=== PATIENT | female | born 1965 | race Caucasian/White ===

== ENCOUNTER 2016-12-11 22:00 | Emergency (ER) | payer MEDICAID ==
[~2016-12-11] VITALS: Ht 154.9 cm; Wt 63.5 kg
[~2016-12-11 22:00] MED LIST: NO MEDS
[2016-12-11 22:17] VITALS: BP 137/90
== END 2016-12-12 01:00 | disposition home or self-care (01) ==
LOC: ER 22:01
DX: S29.012A Strain of muscle and tendon of back wall of thorax, initial encounter (principal); Z86.711 Personal history of pulmonary embolism; Z88.2 Allergy status to sulfonamides; V43.52XA Car driver injured in collision with other type car in traffic accident, initial encounter; Y93.89 Activity, other specified; Y92.89 Other specified places as the place of occurrence of the external cause; Y99.9 Unspecified external cause status
CPT/HCPCS: 99283; A4606; Z7610

== ENCOUNTER 2018-07-02 06:11 | Inpatient (IN) | payer MEDICAID, OTHER ==
[~2018-07-02] VITALS: Ht 152.4 cm; Wt 68.0 kg
--- NOTE | 2018-07-02 06:20 | NUR ---
TO BED 4 AMBULATORY C/O RLQ ABDOMINAL PAIN WITH N/V SINCE 0230. PT AAOX4 NO ACUTE DISTRESS NOTED, RESP EVEN AND UNLABORED. ER MD AT BEDSIDE TO EVAL PT WITH ORDERS RECEIVED. WILL CARRY OUT ORDERS.
[2018-07-02] MEDS ORDERED: HYDROMORPHONE INJ 2 MG/ML DISP.SYRIN IV ONE (06:30)
[2018-07-02] MEDS ORDERED: ONDANSETRON HCL/PF 4 MG/2 ML VIAL IVP ONE (06:30)
[2018-07-02] MEDS ORDERED: IV NS 0.9% 1,000 ML BAG IV ONE (06:30)
[2018-07-02] MEDS ORDERED: ONDANSETRON HCL/PF 4 MG/2 ML VIAL ONE (06:33)
[2018-07-02] MEDS ORDERED: HYDROMORPHONE 1 MG/1 ML DISP.SYRIN ONE (06:34)
--- NOTE | 2018-07-02 06:35 | NUR ---
PT UNABLE TO PROVIDE URINE SAMPLE AT THIS TIME. GIANLUCA GERARDO MADE AWARE.
--- NOTE | 2018-07-02 06:36 | NUR ---
RN AT BEDSIDE TO MEDICATE PT.
[2018-07-02 06:54] LABS: BASOPHILS # (AUTO) 0.1 /CMM (0.0-0.2); BASOPHILS % (AUTO) 0.4 % (0.0-2.0); EOSINOPHILS % (AUTO) 0.1 % (0.0-6.0); HEMATOCRIT 45 % (33-45); HEMOGLOBIN 14.6 g/dL (11.5-14.8); LYMPHOCYTES % (AUTO) 6.1 % (20.0-44.0); MEAN CORPUSCULAR HEMOGLOBIN 30 PG (26.0-33.0); MEAN CORPUSCULAR HGB CONC 32 g/dl (31.0-36.0); MEAN CORPUSCULAR VOLUME 93 fL (82-100); MONOCYTES # (AUTO) 0.9 /CMM (0.1-1.30); MONOCYTES % (AUTO) 5.6 % (2.0-12.0); NEUTROPHILS # (AUTO) 14.4 /CMM (1.8-8.9); NEUTROPHILS % (AUTO) 87.8 % (43.0-81.0); PLATELET COUNT (AUTO) 203 /CMM (150-450); RED BLOOD CELL COUNT(AUTO) 4.86 MIL/uL (4.0-5.2); WHITE BLOOD COUNT (AUTO) 16.4 K/uL (4.3-11.0)
[2018-07-02 06:56] LABS: CALCIUM, SERUM 8.6 mg/dL (8.5-10.1); CREATININE 0.8 mg/dL (0.6-1.3); POTASSIUM 3.7 mmol/L (3.5-5.1)
[2018-07-02 07:02] LABS: ALBUMIN 4.3 g/dL (3.4-5.0); BILIRUBIN,DIRECT 0.1 mg/dL (0.0-0.2); BILIRUBIN,TOTAL 0.8 mg/dL (0.2-1.0); TOTAL PROTEIN, SERUM 7.8 g/dL (6.4-8.2)
--- NOTE | 2018-07-02 07:27 | NUR ---
PT TO CT.
--- NOTE | 2018-07-02 07:37 | NUR ---
PT IS BACK FROM CT
[2018-07-02 07:58] LABS: APPEARANCE,URINE SL CLOUDY (CLEAR); BILIRUBIN,URINE 1+ (NEGATIVE); BLOOD, URINE NEGATIVE Ery/uL (NEGATIVE); COLOR,URINE YELLOW (YELLOW); KETONES,URINE 3+ (NEGATIVE); LEUKOCYTE ESTERASE ,URINE NEGATIVE (NEGATIVE); NITRITE, URINE NEGATIVE (NEGATIVE); PH,URINE 5.5 (5.0-8.0); PROTEIN,URINE NEGATIVE (NEGATIVE); UGLUCOSE NEGATIVE (NEGATIVE); UROBILINOGEN,URINE 0.2 EU/dL (0.2)
[2018-07-02 08:04] LABS: RBC,URINE NONE SEEN /HPF (0-2); WBC,URINE 0-2 /HPF (0-3)
--- NOTE | 2018-07-02 08:04 | NUR ---
CALLED FOR TELE BED
[2018-07-02 08:05] LABS: BACTERIA,URINE Few /HPF (None Seen); SQUAMOUS EPITHELIAL CELL,UR Few /HPF (None Seen)
[2018-07-02] MEDS ORDERED: RANI150C4 PO (08:14)
[2018-07-02] MEDS ORDERED: PIPERACILLIN /TAZOBACTAM 3.375 G in IV D5W 50 ML IV ONE (08:30)
[2018-07-02] MEDS ORDERED: IV NS 0.9% 1,000 ML IV PRN (08:40)
[2018-07-02] MEDS ORDERED: MORPHINE SULFATE INJ 4 MG/ML DISP.SYRIN IV PRN (09:00)
[2018-07-02] MEDS ORDERED: Z GUARD REMEDY 2 OZ OINT TP PRN (09:00)
[2018-07-02] MEDS ORDERED: ZOLPIDEM TARTRATE 5 MG TABLET PO PRN (09:00)
--- NOTE | 2018-07-02 09:02 | NUR ---
REPORT GIVEN TO ELISABETH MCKEON FOR BUSHRA
--- NOTE | 2018-07-02 09:10 | NUR ---
RN NOTES RECEIVED REPORT FROM GIANLUCA DE LEÓN RN
[2018-07-02 09:25] VITALS: BP 112/65
--- NOTE | 2018-07-02 09:30 | NUR ---
MS/RN ADMITTING NOTES RECEIVED PT FROM ER VIA GURNEY, PT IS AMBULATORY WITH STANDBY ASSIST. A/OX4. TOLERATING ROOM AIR WELL, NO SOB NOTED. WITH C/O ABDOMINAL RLQ PAIN, WITH PAIN SCALE OF 8/10. WITH INTACT AND PATENT RAC G18 SL. VS AND INITIAL PHYSICAL ASSESSMENT DONE. ORIENTE TO ROOM AND CALL LIGHT, HOB ELEVATE. BED IN LOW AND LOCKED POSITION. SAFETY MEASURES IN PLACED. CALL LIGHT WITHIN REACH. DR STREETER, ADMITTING MD ON FLOOR. WILL CONT TO MONITOR
--- NOTE | 2018-07-02 09:50 | NUR ---
RN NOTES SEEN AND EXAMINED BY DR STREETER, ALL CONCERNS WERE ANSWERED BY MD. ADMISSION ORDER DONE BY MD. PER MD, POSSIBLE SURGERY TODAY UNDER DR BERNAL. NOTIFIED DR BERNAL. AWAITING FOR ORDERS
[2018-07-02 10:17] LABS: INR 0.93 (0.87-1.13)
[2018-07-02] MEDS: PIPERACILLIN /TAZOBACTAM 3.375 G in IV D5W 50 ML IV SCH ×2 (11:53→17:10)
[2018-07-02] MEDS: ONDANSETRON HCL/PF 4 MG/2 ML VIAL IVP PRN (12:20)
[2018-07-02 16:00] VITALS: BP 112/67
--- NOTE | 2018-07-02 18:04 | NUR ---
RN NOTES PT WAS PICKED UP BY OR NURSE IN STABLE CONDITION
[2018-07-02] MEDS ORDERED: ANESTHESIA TRAY IN PYXIS 1 EA TRAY MC ONE (18:14)
[2018-07-02] MEDS ORDERED: BUPIVACAINE 0.5 % PF 150 MG/30 ML VIAL ONE (18:15)
[2018-07-02] MEDS ORDERED: ROCURONIUM BROMIDE 50 MG/5 ML ONE (18:28)
[2018-07-02] MEDS ORDERED: SUCCINYLCHOLINE CHLORIDE 20 MG/ML VIAL ONE (18:28)
[2018-07-02] MEDS ORDERED: HYDROMORPHONE INJ 2 MG/ML DISP.SYRIN ONE (18:28)
[2018-07-02] MEDS ORDERED: MIDAZOLAM HCL 2 MG/2ML VIAL ONE (18:28)
[2018-07-02] MEDS ORDERED: ENOXAPARIN SODIUM 40 MG/0.4 ML DISP.SYRIN SQ ONE (18:43)
--- NOTE | 2018-07-02 19:12 | NUR ---
RN NOTES PT STILL AT OR. ENDORSED TO PM RN FOR BUSHRA, 1840 LOVENOX TO BE GIVEN TO NEXT SHIFT RN
--- NOTE | 2018-07-02 20:50 | NUR ---
RN NOTES RECEIVED PATIENT FROM O.R. VIA STRETCHER IN STABLE CONDITION. BREATHING EVEN AND UNLABORED. DAUGHTER AT BEDSIDE. ALERT AND ORIENTED. VERBALLY ABLE TO COMMUNICATE NEEDS, VITAL SIGNS WNL. KEPT CLEAN AND DRY. WILL CONTINUE TO MONITOR.
[2018-07-02] MEDS: IV LR 1000 ML 1,000 ML IV PRN (22:05)
[2018-07-02] MEDS: MORPHINE SULFATE INJ 4 MG/ML DISP.SYRIN IVP PRN (23:02)
[2018-07-03] MEDS: MORPHINE SULFATE INJ 4 MG/ML DISP.SYRIN IVP PRN ×3 (00:17→15:55)
[2018-07-03] MEDS: HYDROCODONE/APAP 5/325MG 1 EACH TABLET PO PRN ×2 (00:37→06:14)
[2018-07-03] MEDS: ONDANSETRON HCL/PF 4 MG/2 ML VIAL IVP PRN ×3 (00:49→17:50)
[2018-07-03] MEDS: PIPERACILLIN /TAZOBACTAM 3.375 G in IV D5W 50 ML IV SCH ×5 (01:13→23:21)
[2018-07-03 04:00] VITALS: BP 120/68
[2018-07-03] MEDS: IV LR 1000 ML 1,000 ML IV PRN (06:10)
[2018-07-03 06:28] LABS: BASOPHILS % (AUTO) 0.1 % (0.0-2.0); HEMATOCRIT 33 % (33-45); HEMOGLOBIN 10.6 g/dL (11.5-14.8); LYMPHOCYTES # (AUTO) 0.9 /CMM (0.8-4.8); LYMPHOCYTES % (AUTO) 7.6 % (20.0-44.0); MEAN CORPUSCULAR HEMOGLOBIN 30 PG (26.0-33.0); MEAN CORPUSCULAR HGB CONC 32 g/dl (31.0-36.0); MEAN CORPUSCULAR VOLUME 95 fL (82-100); MONOCYTES # (AUTO) 0.8 /CMM (0.1-1.30); MONOCYTES % (AUTO) 6.6 % (2.0-12.0); NEUTROPHILS # (AUTO) 10.6 /CMM (1.8-8.9); NEUTROPHILS % (AUTO) 85.7 % (43.0-81.0); PLATELET COUNT (AUTO) 184 /CMM (150-450); RDW COEFFICIENT OF VARIATION 13.8 (11.5-15.0); RED BLOOD CELL COUNT(AUTO) 3.51 MIL/uL (4.0-5.2); WHITE BLOOD COUNT (AUTO) 12.3 K/uL (4.3-11.0)
[2018-07-03 06:55] LABS: BILIRUBIN,TOTAL 0.8 mg/dL (0.2-1.0); CALCIUM, SERUM 7.6 mg/dL (8.5-10.1); CREATININE 0.7 mg/dL (0.6-1.3); MAGNESIUM 2.1 mg/dL (1.8-2.4); PHOSPHORUS 4.3 mg/dL (2.5-4.9); POTASSIUM 3.8 mmol/L (3.5-5.1)
--- NOTE | 2018-07-03 07:30 | NUR ---
MS RN NOTE PATIENT IN BED ,ALL NEEDS ATTENDED , RT AC HL INTACT CALL LIGHT WITHIN REACH , NO SOB NOTED REASPIRATED UNLABORED , ON IVF ORDERED BED IN LOWEST AND LOCKED POSITION,WILL CONT TO MONITOR CLOSELY Addendum: 07/03/18 at 0912 by LORE GERARD RN ABDOMEN FIRM TO TOUCH ,STATED NO PASS GASSES YET, ENCOURAGE TO AMBULATE TOLERATED WILL CONT TO MONITOR ,HAS 3 SITE SMALL INCISIONON LOWER ABDOMEN, NO BLEEDING NOTED BUT WITH BLUISH DISCOLORATION NOTED
--- NOTE | 2018-07-03 07:44 | NUR ---
MS RN NOTE SPOKE WITH RODOLFO BARBER GLUE SPREADING MACHINE OPERATOR NOTIFIED THAT PATIENT SEVERE ACID REFLEX, WANTS TO START HER RANITIDINE , ORDERED PROTONIX AT THIS TIME ,WILL F\U
[2018-07-03 08:00] VITALS: BP 106/70
[2018-07-03] MEDS: PANTOPRAZOLE 40 MG TABLET.DR PO SCH (08:02)
--- NOTE | 2018-07-03 10:00 | NUR ---
MS RN NOTE AMBULATE AROUND HER ROOM WITH ASSISTANCE. NOT IN ACUTE DISTRESS .ABLE TO SIT ON CHAIR
--- NOTE | 2018-07-03 10:50 | NUR ---
MS RN NOTE ZOFRAN AND MORPHINE GIVEN FOR PAIN AND NAUSEA, SAT 95%
[2018-07-03 12:00] VITALS: BP 125/70
--- NOTE | 2018-07-03 12:11 | NUR ---
ms rn note called to dr kirkpatrick ,notifyed that patient c\o constipation, ordered Colace bid ,order carried out
--- NOTE | 2018-07-03 14:30 | NUR ---
MS RN NOTE AMBULATED IN HALLWAY WITH STAND BY ASSISTANCE, NOT IN ACUTE DISTRESS,WILL CONT TO MONITOR CLOSELY
[2018-07-03 16:00] VITALS: BP 116/62
--- NOTE | 2018-07-03 16:00 | NUR ---
MS RN NOTE MORPHINE 3 MG IVP GIBES, SAT 94%
[2018-07-03] MEDS: DOCUSATE SODIUM 100 MG CAPSULE PO SCH (16:04)
--- NOTE | 2018-07-03 16:58 | NUR ---
MS RN NOTE DR SINGH AT BEDSIDE, AWARE THAT PATIENT C\O ABDOMINALE DISCOMFORT ALSO REPORTED THAT ONE INCISIONAL SITE IS SLIGHTLY FIRM AND HARD TO TOUCH S\P APPENDECTOMY ALSO AWARE THAT PATIENT IN IVF MAY NEED TO ADJUST RATE OF IVF FLUID, ALSO NOTIFIED THAT PATIENT NOT PASSES GASSES ,STATED THAT WILL CHECK EVERYTHING ,WILL F\U
[2018-07-03] MEDS ORDERED: HYDROCODONE/APAP 10/325MG 1 EA TABLET PO PRN (17:00)
[2018-07-03] MEDS: SENNOSIDES 8.6 MG TABLET PO SCH ×2 (17:00→21:42)
[2018-07-03] MEDS ORDERED: HYDROCODONE/APAP 5/325MG 1 EACH TABLET PO PRN (17:00)
[2018-07-03] MEDS ORDERED: SIMETHICONE SUSP 40 MG/0.6 ML BOTTLE PO ONE (17:00)
[2018-07-03] MEDS ORDERED: FAMOTIDINE/PF INJ 20 MG/2 ML VIAL IV SCH (17:00)
[2018-07-03] MEDS ORDERED: POLYETHYLENE GLYCOL 3350 17 GM POWD.PACK PO SCH (17:00)
[2018-07-03] MEDS: KETOROLAC TROMETHAMINE INJ 30 MG/ML VIAL IM SCH ×2 (17:00→23:14)
[2018-07-03] MEDS ORDERED: SIMETHICONE SUSP 40 MG/0.6 ML BOTTLE PO PRN (17:00)
--- NOTE | 2018-07-03 17:46 | NUR ---
MS RN NOTE JAIMEE DONE .SIMETHICONE SCHEDULED AT 2200, PHARMACY NOTIFIED
[2018-07-03] MEDS: IV NS 0.9% 1,000 ML IV PRN (17:50)
--- NOTE | 2018-07-03 18:30 | NUR ---
MS RN NOTE ALL NEEDS ATTENDED ON IVF ORDERED ,NO C\O PAIN OR DISCOMFORT AT THIS TIME,WILL CONT TO MONITOR CLOSELY
[2018-07-03 20:00] VITALS: BP 110/48
--- NOTE | 2018-07-03 20:00 | NUR ---
MS RN NOTE PT IN BED SLEEPING, EASILY AROUSABLE. NO DISTRESS OR DISCOMFORT NOTED. DENIES PAIN AT THIS TIME. STATES "I AM TOLERATING PAIN WELL, BUT WORRIED ABOUT CONSTIPATION". REMINDED PT TO AMBULATE AND THERE ARE MEDS FOR CONSTIPATION. IVF NS INFUSING AT 75 ML/HR, RAC # 18 G, NO S/S OF INFILTRATION NOTED. VSS. CONTINUE TO MONITOR HER.
[2018-07-03] MEDS ORDERED: ENOXAPARIN SODIUM 40 MG/0.4 ML DISP.SYRIN SQ SCH (21:00)
[2018-07-03] MEDS: POLYETHYLENE GLYCOL 3350 17 GM POWD.PACK PO SCH (21:41)
[2018-07-03] MEDS: FAMOTIDINE/PF INJ 20 MG/2 ML VIAL IV SCH (21:42)
[2018-07-04 04:00] VITALS: BP 106/46
[2018-07-04] MEDS: KETOROLAC TROMETHAMINE INJ 30 MG/ML VIAL IM SCH ×3 (04:45→16:51)
[2018-07-04] MEDS: MORPHINE SULFATE INJ 4 MG/ML DISP.SYRIN IM PRN ×3 (04:45→17:09)
--- NOTE | 2018-07-04 04:46 | NUR ---
MS RN NOTE PT WOKE UP AND C/O IN LOWER ABD 06/03, PT REFUSE TORADOL IM SHOT. STATES "IT IS NOT WORKING WELL AND NEED SOME OTHER STRONG PAIN MED". MORPHINE 4 MG IVP GIVEN. CONTINUE TO MONITOR HER. VSS.
--- NOTE | 2018-07-04 04:50 | NUR ---
MS RN NOTE PT C/O NAUSEA, ZOFRAN 4 MG IVP GIVEN FOR NAUSEA. CONTINUE TO MONITOR HER.
[2018-07-04] MEDS: ONDANSETRON HCL/PF 4 MG/2 ML VIAL IVP PRN ×2 (05:02→14:09)
[2018-07-04] MEDS: PIPERACILLIN /TAZOBACTAM 3.375 G in IV D5W 50 ML IV SCH ×3 (05:12→17:08)
--- NOTE | 2018-07-04 05:30 | NUR ---
MS RN NOTE PAIN SUBSIDED 12/04. ALSO NAUSEA SUBSIDED. PT IS AWAKE WATCHING TV. IVF INFUSING WELL, NO S /S OF INFILTRATION NOTED.
[2018-07-04 06:42] LABS: BASOPHILS % (AUTO) 0.4 % (0.0-2.0); EOSINOPHILS % (AUTO) 1.5 % (0.0-6.0); HEMATOCRIT 26 % (33-45); HEMOGLOBIN 8.2 g/dL (11.5-14.8); LYMPHOCYTES # (AUTO) 2.9 /CMM (0.8-4.8); LYMPHOCYTES % (AUTO) 31.5 % (20.0-44.0); MEAN CORPUSCULAR HEMOGLOBIN 30 PG (26.0-33.0); MEAN CORPUSCULAR HGB CONC 32 g/dl (31.0-36.0); MEAN CORPUSCULAR VOLUME 93 fL (82-100); MONOCYTES # (AUTO) 0.6 /CMM (0.1-1.30); MONOCYTES % (AUTO) 6.7 % (2.0-12.0); NEUTROPHILS # (AUTO) 5.6 /CMM (1.8-8.9); NEUTROPHILS % (AUTO) 59.9 % (43.0-81.0); PLATELET COUNT (AUTO) 152 /CMM (150-450); RDW COEFFICIENT OF VARIATION 13.4 (11.5-15.0); RED BLOOD CELL COUNT(AUTO) 2.75 MIL/uL (4.0-5.2); WHITE BLOOD COUNT (AUTO) 9.3 K/uL (4.3-11.0)
--- NOTE | 2018-07-04 06:43 | NUR ---
MS RN NOTE PT IN BED ASLEEP, NO DISTRESS OR DISCOMFORT NOTED. EASILY AROUSABLE. PAIN MEDS GIVEN DURING THE SHIFT. IVF NS INFUSING WELL, NO S/S OF INFILTRATION NOTED. SIDE RAILS UP X 2 AND CALL LIGHT WITHIN REACH. WILL ENDORSE TO DAY SHIFT NURSE FOR CONTINUE TO CARE.
[2018-07-04 06:44] LABS: CALCIUM, SERUM 7.5 mg/dL (8.5-10.1); CREATININE 0.7 mg/dL (0.6-1.3); MAGNESIUM 2.1 mg/dL (1.8-2.4); PHOSPHORUS 2.1 mg/dL (2.5-4.9); POTASSIUM 3.2 mmol/L (3.5-5.1)
--- NOTE | 2018-07-04 07:30 | NUR ---
PRINCIPAL SECURITY ARCHITECT INITIAL NOTES RECEIVED PATIENT IN BED, AOX3, ON ROOM AIR, NO SIGNS OF DISTRESS, AMBULATORY, POST SURGERY, IV RAC 18G NS @75 ML/HR, BED IN LOW AND LOCKED POSITION CALL LIGHT WITHIN REACH, WILL CONTINUE TO MONITOR.
[2018-07-04 08:00] VITALS: BP 108/53
[2018-07-04] MEDS: PANTOPRAZOLE 40 MG TABLET.DR PO SCH (08:37)
[2018-07-04] MEDS: DOCUSATE SODIUM 100 MG CAPSULE PO SCH ×2 (08:37→16:55)
[2018-07-04] MEDS: FAMOTIDINE/PF INJ 20 MG/2 ML VIAL IV SCH ×2 (08:37→21:40)
--- NOTE | 2018-07-04 09:00 | NUR ---
MANAGER CULINARY NOTES PATIENT CO OF PAIN ALL OVER, 08/03, WILL ADMINISTER PRN PAIN MEDICATIONS
[2018-07-04] MEDS: POTASSIUM CHLORIDE 20 MEQ POWDER PACKET PO SCH ×2 (09:42→10:43)
--- NOTE | 2018-07-04 13:59 | NUR ---
OIL WINTERIZER NOTES PATIENT TAKEN TO CT OF ABDOMEN, ORDERED BY DR SINGH, STABLE VIA WHEELCHAIR.
--- NOTE | 2018-07-04 14:15 | NUR ---
DAY CARE HOME PROVIDER NOTES PATIENT RETURNED FROM CT SCAN NAUSEOUS WITH EMESIS, ZOFRAN GIVEN. WILL CONTINUE TO MONITOR.
--- NOTE | 2018-07-04 15:24 | NUR ---
LOADER MALT HOUSE NOTES PATIENT CONTINUES TO BE NAUSEOUS, WITH ONE TIME EMESIS, CT OF ABDOMEN RESULTED, DR SINGH AND DR BERNAL, BOTHE MADE AWARE OF RESULTS AND PATIENTS CONDITION. PER DR BERNAL MD LOVENOX AND KEEP PATIENT ON CLEAR LIQUIDS DIET.
[2018-07-04] MEDS ORDERED: K PHOS NEUTRAL 250 MG TABLET PO ONE (15:30)
[2018-07-04 16:00] VITALS: BP 109/52
[2018-07-04] MEDS: IV NS 0.9% 1,000 ML IV PRN (16:54)
[2018-07-04 17:45] LABS: HEMOGLOBIN 8.3 g/dL (11.5-14.8)
--- NOTE | 2018-07-04 18:25 | NUR ---
TOY ASSEMBLER WOOD END NOTES PATIENT IS RESTING IN BED, NO SIGNS OF DISTRESS, TOLERATED HER DINNER CLEAR LIQUID, ALL NEEDS ADDRESSED, WILL ENDORSE TO FAMILY LAW MEDIATOR FOR CONTINUITY OF CARE.
[2018-07-04 20:00] VITALS: BP 110/56
--- NOTE | 2018-07-04 21:17 | NUR ---
MD BERNAL AT BEDSIDE , AWARE OF CT RESULTS, WITH NEW ORDER TO AD MOM PO BID STARTING FIRST DOSE NOW.
--- NOTE | 2018-07-04 21:39 | NUR ---
PER MD BERNAL ADMIN 1 RECTAL ENEMA TODAY TIMES 1 NOW
[2018-07-04] MEDS: POLYETHYLENE GLYCOL 3350 17 GM POWD.PACK PO SCH (21:40)
[2018-07-04] MEDS: SENNOSIDES 8.6 MG TABLET PO SCH (21:40)
[2018-07-04] MEDS: MAGNESIUM HYDROXIDE 30 ML UDC PO SCH (21:40)
[2018-07-04] MEDS ORDERED: NA PHOS,M-B/NA PHOS,DI-BA 1 EA ENEMA RC ONE (22:00)
[2018-07-05] MEDS: PIPERACILLIN /TAZOBACTAM 3.375 G in IV D5W 50 ML IV SCH ×5 (00:20→23:57)
[2018-07-05 04:00] VITALS: BP 120/56
[2018-07-05 04:16] VITALS: BP 120/56
[2018-07-05 07:06] LABS: BASOPHILS % (AUTO) 0.3 % (0.0-2.0); EOSINOPHILS % (AUTO) 0.6 % (0.0-6.0); HEMATOCRIT 24 % (33-45); HEMOGLOBIN 8.1 g/dL (11.5-14.8); LYMPHOCYTES # (AUTO) 1.2 /CMM (0.8-4.8); LYMPHOCYTES % (AUTO) 15.8 % (20.0-44.0); MEAN CORPUSCULAR HEMOGLOBIN 31 PG (26.0-33.0); MEAN CORPUSCULAR HGB CONC 33 g/dl (31.0-36.0); MEAN CORPUSCULAR VOLUME 93 fL (82-100); MONOCYTES # (AUTO) 0.6 /CMM (0.1-1.30); MONOCYTES % (AUTO) 7.7 % (2.0-12.0); NEUTROPHILS # (AUTO) 5.9 /CMM (1.8-8.9); NEUTROPHILS % (AUTO) 75.6 % (43.0-81.0); PLATELET COUNT (AUTO) 149 /CMM (150-450); RDW COEFFICIENT OF VARIATION 13.4 (11.5-15.0); RED BLOOD CELL COUNT(AUTO) 2.64 MIL/uL (4.0-5.2); WHITE BLOOD COUNT (AUTO) 7.8 K/uL (4.3-11.0)
--- NOTE | 2018-07-05 07:30 | NUR ---
CONSTRUCTION SAFETY CONSULTANT INITIAL NOTES RECEIVED PATIENT IN BED, AOX3, ON ROOM AIR, NO SIGNS OF DISTRESS, AMBULATORY, POST SURGERY, IV RAC 18G NS @75 ML/HR, INCENTIVE SPIROMETER AT BEDSIDE. BED IN LOW AND LOCKED POSITION CALL LIGHT WITHIN REACH, WILL CONTINUE TO MONITOR.
[2018-07-05 07:32] LABS: CALCIUM, SERUM 7.6 mg/dL (8.5-10.1); CREATININE 0.5 mg/dL (0.6-1.3); MAGNESIUM 2.2 mg/dL (1.8-2.4); PHOSPHORUS 2.9 mg/dL (2.5-4.9); POTASSIUM 3.1 mmol/L (3.5-5.1)
[2018-07-05 08:00] VITALS: BP 120/62
[2018-07-05] MEDS: MAGNESIUM HYDROXIDE 30 ML UDC PO SCH ×3 (08:05→17:00)
[2018-07-05] MEDS: PANTOPRAZOLE 40 MG TABLET.DR PO SCH (08:05)
[2018-07-05] MEDS: DOCUSATE SODIUM 100 MG CAPSULE PO SCH ×3 (08:05→17:00)
[2018-07-05] MEDS: FAMOTIDINE/PF INJ 20 MG/2 ML VIAL IV SCH ×2 (08:05→21:55)
[2018-07-05] MEDS ORDERED: POTASSIUM CHLORIDE 20 MEQ POWDER PACKET PO SCH (11:30)
[2018-07-05] MEDS: POTASSIUM CHLORIDE 20 MEQ TAB.PRT.SR PO SCH ×2 (11:50→14:14)
[2018-07-05 16:00] VITALS: BP 113/68
[2018-07-05] MEDS: ACETAMINOPHEN 325 MG TABLET PO PRN (18:08)
--- NOTE | 2018-07-05 18:57 | NUR ---
HOUSE FELLOW END NOTES PATIENT RESTING IN BED, NO SIGNS OF DISTRESS, OK TO ADVANCE DIET TO SOFT DIET PER DR BERNAL AND DR GARCIA AWARE. TYLNOL GIVEN FOR HEADACHE WILL ENDORSE TO HEAD REFRIGERATION ENGINEER FOR CONTINUITY OF CARE.
[2018-07-05 20:00] VITALS: BP 120/74
--- NOTE | 2018-07-05 20:18 | NUR ---
RN OPENING NOTES RECEIVED REPORT FROM JASE BARBER. PATIENT A/A/O X3, ABLE TO MAKE NEEDS KNOWN. BREATHING EVEN & UNLABORED, TOLERATING ROOM AIR. RADIAL PULSES PRESENT & BOUNDING. DENIES ANY SOB OR DIFFICULTY BREATHING. RIGHT AC IV #18 INTACT & PATENT W/ DRESSING CDI. ABLE TO AMBULATE TO BATHROOM W/ FWW & STEADY GAIT. DENIES ANY PAIN OR DISCOMFORT @ THIS TIME. SAFETY MEASURES IN PLACE W/ CALL LIGHT WITHIN REACH. INSTRUCTED TO CALL FOR ASSISTANCE. WILL CONTINUE TO MONITOR.
[2018-07-05] MEDS: SENNOSIDES 8.6 MG TABLET PO SCH (21:55)
[2018-07-05] MEDS: POLYETHYLENE GLYCOL 3350 17 GM POWD.PACK PO SCH (21:55)
[2018-07-06 04:00] VITALS: BP 131/80
[2018-07-06] MEDS: PIPERACILLIN /TAZOBACTAM 3.375 G in IV D5W 50 ML IV SCH ×2 (05:31→12:47)
[2018-07-06 06:39] LABS: CALCIUM, SERUM 7.9 mg/dL (8.5-10.1); CREATININE 0.7 mg/dL (0.6-1.3); POTASSIUM 3.3 mmol/L (3.5-5.1)
[2018-07-06 06:43] LABS: BASOPHILS % (AUTO) 0.2 % (0.0-2.0); EOSINOPHILS % (AUTO) 0.8 % (0.0-6.0); HEMATOCRIT 25 % (33-45); HEMOGLOBIN 8.4 g/dL (11.5-14.8); LYMPHOCYTES # (AUTO) 1.1 /CMM (0.8-4.8); LYMPHOCYTES % (AUTO) 12.8 % (20.0-44.0); MEAN CORPUSCULAR HEMOGLOBIN 31 PG (26.0-33.0); MEAN CORPUSCULAR HGB CONC 33 g/dl (31.0-36.0); MEAN CORPUSCULAR VOLUME 93 fL (82-100); MONOCYTES # (AUTO) 0.6 /CMM (0.1-1.30); MONOCYTES % (AUTO) 7.1 % (2.0-12.0); NEUTROPHILS % (AUTO) 79.1 % (43.0-81.0); PLATELET COUNT (AUTO) 176 /CMM (150-450); RDW COEFFICIENT OF VARIATION 13.2 (11.5-15.0); RED BLOOD CELL COUNT(AUTO) 2.72 MIL/uL (4.0-5.2); WHITE BLOOD COUNT (AUTO) 8.9 K/uL (4.3-11.0)
--- NOTE | 2018-07-06 07:32 | NUR ---
RN OPENING NOTES RECEIVED REPORT FROM PM RN. PATIENT A/A/O X4, ABLE TO MAKE NEEDS KNOWN. BREATHING EVEN & UNLABORED, ON O2 2L VIA NASAL CANULA. DENIES ANY SOB OR DIFFICULTY BREATHING. RIGHT AC IV #18 INTACT & PATENT W/ DRESSING CDI. ABLE TO AMBULATE TO BATHROOM W/ FWW & STEADY GAIT. DENIES ANY PAIN OR DISCOMFORT @ THIS TIME. SAFETY MEASURES IN PLACE W/ CALL LIGHT WITHIN REACH. INSTRUCTED TO CALL FOR ASSISTANCE. WILL CONTINUE TO MONITOR.
[2018-07-06 08:00] VITALS: BP 130/70
[2018-07-06] MEDS: MAGNESIUM HYDROXIDE 30 ML UDC PO SCH (08:18)
[2018-07-06] MEDS: FAMOTIDINE/PF INJ 20 MG/2 ML VIAL IV SCH (08:18)
[2018-07-06] MEDS: DOCUSATE SODIUM 100 MG CAPSULE PO SCH (08:18)
[2018-07-06] MEDS: PANTOPRAZOLE 40 MG TABLET.DR PO SCH (08:19)
[2018-07-06] MEDS: ACETAMINOPHEN 325 MG TABLET PO PRN (08:19)
[2018-07-06] MEDS ORDERED: HYDR-3972 PO (11:07)
[2018-07-06] MEDS ORDERED: DOCU-141 PO (11:07)
--- NOTE | 2018-07-06 11:55 | NUR ---
patient room air sat 86percent.krysten christianson made aware.
[2018-07-06] MEDS ORDERED: POTASSIUM CHLORIDE 20 MEQ TAB.PRT.SR PO SCH (12:30)
--- NOTE | 2018-07-06 13:00 | NUR ---
RN NOTES SEEN BY GOT D/C HOME ORDER.PATIENT MADE AWARE.UPDATED PATIENT LAB AND NOTIFIED PATIENT HAS MILD TEMP.GOING HOME WITH HOME HEALTH.WAITING FOR CASE MANAGEMENT FOR ARRANGE OXYGEN TO THE HOME.
--- NOTE | 2018-07-06 15:20 | NUR ---
RN NOTES OK TO D/C HOME PER HOG STOMACH PREPARER.THEY WILL DELIVER OXYGEN AT HOME.
--- NOTE | 2018-07-06 15:50 | NUR ---
TUBE REBUILDER NOTE PATIENT D/C HOME IN STABLE CONDITION WITH DAUGHTER NATALLY .NO SOB NO DISTRESS NOTED AT THIS TIME.DENIED ANY PAIN.TOOK ALL BELONGINGS BY PATIENT.REMOVED IV.MINIMAL BLEEDING NOTED.PRESSURE DRESSING APPLIED.EXIT CARE DONE.PRESCRIPTION GIVEN.VERBALIZE UNDERSTANDING.DISCHARGE PAPER WORK SIGNED BY THE PATIENT AND FOLDER GIVEN.INFORMED TO F/U WITH PCP AND SURGEON SHE TOLD THAT SHE HAS CARD FROM DOCTOR WILL F/U WITH HIM.SURGICAL INCISION NORMAL .NO DISCHARGE OR NO REDNESS NOTED.EDUCATION GIVEN TO TAKE CARE OF INCISION
== END 2018-07-06 15:46 | disposition home health service (06) | DRG 234 ==
LOC: ER 06:15 → TELE1 08:58 → MEDSG1 12:14
PROVIDERS: ADMIT Internal Medicine; ATTEND Internal Medicine
PROC: 0DTJ4ZZ Resection of Appendix, Percutaneous Endoscopic Approach (ICD-10-PCS; principal; 2018-07-02 15:30)
DX: K35.80 Unspecified acute appendicitis (principal); J18.9 Pneumonia, unspecified organism; D64.9 Anemia, unspecified; D72.829 Elevated white blood cell count, unspecified; E66.9 Obesity, unspecified; E87.6 Hypokalemia; K44.9 Diaphragmatic hernia without obstruction or gangrene; Z86.711 Personal history of pulmonary embolism; Z88.2 Allergy status to sulfonamides; K21.9 Gastro-esophageal reflux disease without esophagitis; K40.90 Unilateral inguinal hernia, without obstruction or gangrene, not specified as recurrent; J98.11 Atelectasis; Z68.29 Body mass index [BMI] 29.0-29.9, adult; N83.202 Unspecified ovarian cyst, left side
CPT/HCPCS: 36415; 71045-TC; 74018; 80048-TC; 80053-TC; 80061-TC; 80076-TC; 81000-TC; 83690-TC; 83735-TC; 84100-TC; 84703-TC; 85025-TC; 85027-TC; 85730-TC; 86850-TC; 87081-TC; 88304-TC; A4606; J0330; J1100; J1170; J1650; J1885; J2250; J2270; J2405; J2543; J2704; J2710; J3490; J7030; J7050; J7060; J7120; Z7610

== ENCOUNTER 2019-06-13 21:00 | Emergency (ER) | payer MEDICAID, OTHER ==
[~2019-06-13] VITALS: Ht 152.4 cm; Wt 65.8 kg
[~2019-06-13 21:00] MED LIST changes: +DOCU-141 PO; +HYDR-3972 PO; -NO MEDS; +RANI150C4 PO
--- NOTE | 2019-06-13 21:16 | NUR ---
presented to the ER for c/o CP 3-02/01. PT DESCRIBES THE PAIN THIGHTNES THAT RADIATES TO THE NECK. PT NOTED W/ A SMALL BRUISE ON HER NECK WHICH PER HER THAT IS DUE TO THE THYROID BIOPSY SHE HAD 2 WKS AGO. PT ALSO W/ C/O SOB WHEN SHE LAYS FLAT. CURRENTLY HOLDING O2 SAT OF 100% ON R/A. ECG TECH AT THE BED SIDE. VSS. PT PLACED ON A MINITOR.
[2019-06-13 21:31] LABS: BASOPHILS % (AUTO) 0.6 % (0.0-2.0); EOSINOPHILS % (AUTO) 1.7 % (0.0-6.0); HEMATOCRIT 43 % (33-45); HEMOGLOBIN 14.5 g/dL (11.5-14.8); LYMPHOCYTES # (AUTO) 2.4 /CMM (0.8-4.8); LYMPHOCYTES % (AUTO) 31.3 % (20.0-44.0); MEAN CORPUSCULAR HGB CONC 34 g/dl (31.0-36.0); MEAN CORPUSCULAR VOLUME 92 fL (82-100); MONOCYTES # (AUTO) 0.6 /CMM (0.1-1.30); MONOCYTES % (AUTO) 7.5 % (2.0-12.0); NEUTROPHILS # (AUTO) 4.5 /CMM (1.8-8.9); NEUTROPHILS % (AUTO) 58.9 % (43.0-81.0); PLATELET COUNT (AUTO) 197 /CMM (150-450); RED BLOOD CELL COUNT(AUTO) 4.68 MIL/uL (4.0-5.2); WHITE BLOOD COUNT (AUTO) 7.7 K/uL (4.3-11.0)
[2019-06-13 21:41] LABS: CALCIUM, SERUM 8.8 mg/dL (8.5-10.1); CARBON DIOXIDE 28 mmol/L (21-32); CHLORIDE 102 mmol/L (98-107); CREATININE 0.9 mg/dL (0.6-1.3); GLUCOSE 150 mg/dL (74-106); POTASSIUM 3.8 mmol/L (3.5-5.1); SODIUM SERUM 138 mmol/L (136-145); UREA NITROGEN, BLOOD 14 mg/dL (7-18)
[2019-06-13] MEDS ORDERED: IOHEXOL-350 100 ML VIAL IV ONE (21:43)
--- NOTE | 2019-06-13 22:05 | NUR ---
left for CT
[2019-06-13] MEDS ORDERED: KETOROLAC TROMETHAMINE INJ 30 MG/ML VIAL IV ONE (22:30)
[2019-06-13] MEDS ORDERED: FAMOTIDINE/PF INJ 20 MG/2 ML VIAL IV ONE ×2 (22:30→22:49)
[2019-06-13] MEDS ORDERED: KETOROLAC TROMETHAMINE INJ 30 MG/ML VIAL ONE (22:49)
--- NOTE | 2019-06-14 00:16 | NUR ---
PT IN BED AWAKE AND ALERT. BREARHING EVENLY. NO SOB. NO C/O PAIN OR DISCOMFORT. NO DISTRESS. VSS. AWAITING FOR THE 2ND TROP RO BE DRAWN. WILL CONT TO MONITOR
--- NOTE | 2019-06-14 01:14 | NUR ---
IV removed. Catheter intact and site benign. Pressure and 4x4 applied to site. No bleeding noted.Patient discharged to home in stable condition. rx and Written and verbal after care instructions given. Patient verbalizes understanding of instruction.
[2019-06-14 01:34] VITALS: BP 120/60
== END 2019-06-14 01:15 | disposition home or self-care (01) ==
LOC: ER 21:05
DX: R07.89 Other chest pain (principal); Z90.89 Acquired absence of other organs; Z98.890 Other specified postprocedural states; Z86.711 Personal history of pulmonary embolism; Z88.2 Allergy status to sulfonamides; Z60.2 Problems related to living alone; Z79.899 Other long term (current) drug therapy
CPT/HCPCS: 36415 ×2; 71045; 71275; 80048; 84484 ×2; 85025; 85730; 93005 ×2; 96374; 96375; 99284; J1885; J3490; Q9967

== ENCOUNTER 2019-07-19 06:39 | Emergency (ER) | payer MEDICAID ==
[~2019-07-19] VITALS: Ht 152.4 cm; Wt 67.1 kg
[2019-07-19 06:40] VITALS: BP 141/94
--- NOTE | 2019-07-19 06:50 | NUR ---
BIB SELF C/O FEVER, COUGH AND CONGESTION, GEN BODY PAIN X2 DAYS.
--- NOTE | 2019-07-19 06:52 | NUR ---
DR. MCDERMOTT AT THE BED SIDE
[2019-07-19] MEDS ORDERED: ALBUTEROL FS 2.5 MG/3 ML VIAL.NEB NEB ONE (07:00)
[2019-07-19] MEDS ORDERED: FAMOTIDINE (20 MG) 20 MG TABLET PO ONE (07:00)
[2019-07-19] MEDS ORDERED: MAG HYDROX/AL HYDROX/SIMETH 30 ML UDC PO ONE (07:00)
[2019-07-19] MEDS ORDERED: IPRATROPIUM NEB FS 0.5 MG/2.5 ML AMPUL.NEB NEB ONE (07:00)
[2019-07-19] MEDS ORDERED: MAG HYDROX/AL HYDROX/SIMETH 30 ML UDC ONE (07:08)
[2019-07-19] MEDS ORDERED: FAMOTIDINE (20 MG) 20 MG TABLET ONE (07:08)
[2019-07-19] MEDS ORDERED: ALBUTEROL FS 2.5 MG/3 ML VIAL.NEB ONE (07:11)
[2019-07-19] MEDS ORDERED: IPRATROPIUM NEB FS 0.5 MG/2.5 ML AMPUL.NEB ONE (07:11)
== END 2019-07-19 08:48 | disposition home or self-care (01) ==
LOC: ER 06:40
DX: J06.9 Acute upper respiratory infection, unspecified (principal); Z90.89 Acquired absence of other organs; Z98.890 Other specified postprocedural states; Z88.2 Allergy status to sulfonamides; Z60.2 Problems related to living alone; Z79.899 Other long term (current) drug therapy; Z86.711 Personal history of pulmonary embolism

== ENCOUNTER 2021-02-17 01:09 | Emergency (ER) | payer MEDICAID ==
[~2021-02-17] VITALS: Ht 152.4 cm; Wt 68.0 kg
--- NOTE | 2021-02-17 01:15 | NUR ---
bibs to the ER for c/o L sided chest thightness 4 hrs DIRECTOR OF CASEWORK SERVICES ratede 2/10 which radiates to the back on deep breathing, denied SOB, N/V or dizziness. pt was placed in bed 1 ER , on monitor. VSS. will cont to monitor
[2021-02-17] MEDS ORDERED: ASPIRIN 325 MG TABLET PO ONE (01:30)
[2021-02-17] MEDS ORDERED: ASPIRIN 325 MG TABLET ONE (01:35)
[2021-02-17 01:39] LABS: BASOPHILS # (AUTO) 0.1 /CMM (0.0-0.2); BASOPHILS % (AUTO) 0.6 % (0.0-2.0); EOSINOPHILS % (AUTO) 1.2 % (0.0-6.0); HEMATOCRIT 43 % (33-45); HEMOGLOBIN 14.9 g/dL (11.5-14.8); LYMPHOCYTES # (AUTO) 3.2 /CMM (0.8-4.8); LYMPHOCYTES % (AUTO) 37.4 % (20.0-44.0); MEAN CORPUSCULAR HGB CONC 34 g/dl (31.0-36.0); MEAN CORPUSCULAR VOLUME 95 fL (82-100); MONOCYTES # (AUTO) 0.8 /CMM (0.1-1.30); NEUTROPHILS # (AUTO) 4.4 /CMM (1.8-8.9); NEUTROPHILS % (AUTO) 51.8 % (43.0-81.0); PLATELET COUNT (AUTO) 213 /CMM (150-450); RED BLOOD CELL COUNT(AUTO) 4.59 MIL/uL (4.0-5.2); WHITE BLOOD COUNT (AUTO) 8.4 K/uL (4.3-11.0)
[2021-02-17 01:47] LABS: CALCIUM, SERUM 8.5 mg/dL (8.5-10.1); CARBON DIOXIDE 29 mmol/L (21-32); CHLORIDE 102 mmol/L (98-107); CREATININE 0.9 mg/dL (0.6-1.3); GLUCOSE 121 mg/dL (74-106); POTASSIUM 3.4 mmol/L (3.5-5.1); SODIUM SERUM 138 mmol/L (136-145); UREA NITROGEN, BLOOD 24 mg/dL (7-18)
--- NOTE | 2021-02-17 03:17 | NUR ---
PT IS MEDICALLY STBALE FOR D/C. IV removed. Catheter intact and site benign. Pressure and 4x4 applied to site. No bleeding noted.Patient discharged to home in stable condition. Written and verbal after care instructions given. Patient verbalizes understanding of instruction.
[2021-02-17 03:34] VITALS: BP 114/80
== END 2021-02-17 03:17 | disposition home or self-care (01) ==
LOC: ER 01:11
DX: R07.89 Other chest pain (principal); Z90.89 Acquired absence of other organs; Z98.890 Other specified postprocedural states; Z88.2 Allergy status to sulfonamides; Z60.2 Problems related to living alone; Z79.899 Other long term (current) drug therapy
CPT/HCPCS: 36415; 71045-TC; 80048-TC; 84484-TC; 85025-TC